=== PATIENT | male | born 1970 | race Caucasian/White ===

== ENCOUNTER → 2017-05-11 | Outpatient (CLI) | payer OTHER | END | disposition home or self-care (01) | LOC: C.RDSM 09:13 | PROVIDERS: ATTEND Family Medicine Sports Medicine | DX: M25.512 Pain in left shoulder (principal); M25.561 Pain in right knee ==

== ENCOUNTER → 2017-08-28 | Outpatient (CLI) | payer OTHER ==
--- NOTE | 2017-08-28 08:26 | DIAGNOSTIC IMAGING REPORT ---
R LOWER EXT JOINT WITHOUT CLINICAL HISTORY: 46 years-old Male with R KNEE EFFUSION. Acute right knee pain and swelling without known injury COMPARISON: Right knee radiographs 05/11/2017 TECHNIQUE: Multiplanar, multisequence MRI of the right knee was performed without intravenous contrast. FINDINGS: MENISCI: There is a horizontal undersurface tear of the posterior junction and posterior horn lateral meniscus nicely seen on images 6 and 7 of series 6. Additionally, there is a horizontal tear extending to the superior articular surface of the anterior junction lateral meniscal body nicely seen on image 5 series 6 and image 18 of series 8. No displaced fragment identified. 3 mm T2 hyperintense collection adjacent to the anterior horn lateral meniscus as seen on image 7 series 6 may reflect a small parameniscal cyst. Mild parameniscal edema. There is a radial tear of the posterior horn medial meniscus nicely seen on images 20 and 21 of series 8 with blunting of the free medial meniscal body and possible horizontal undersurface tear noted on image 17 of series 8. No definite displaced fragment or parameniscal cyst identified. Mild parameniscal edema. CRUCIATE LIGAMENTS: The anterior and posterior cruciate ligaments are normal in signal, morphology and course. COLLATERAL LIGAMENTS: The popliteus tendon, biceps femoris tendon, fibular collateral ligament and iliotibial band are intact. The superficial and deep components of the medial collateral ligament are intact. Mild edema is noted both superficial and deep to the intact MCL which is likely reactive. EXTENSOR MECHANISM: The quadriceps and patellar tendons are intact. The medial and lateral patellar retinacula are intact. KNEE JOINT: There is a moderate to large joint effusion with mild synovitis. There is mild tricompartmental joint space narrowing. Areas of low-grade chondromalacia are seen within the anterior, mid and posterior weightbearing portions of the lateral femoral condyle. Areas of intermediate grade chondromalacia are seen involving the mid weightbearing portion of the medial femoral condyle with low-grade chondral loss of the medial tibial plateau, most pronounced anteriorly. Area of high-grade chondromalacia involves the lateral trochlear groove nicely seen on image 9 series 6 and image 20 series 4. Mostly low-grade chondromalacia involves the medial and lateral patellar facets. No definite intra-articular loose body identified. BONE MARROW: The bone marrow signal is age appropriate. Mild bone marrow edema of the medial tibial plateau, image 18 series 6 and image 15 series 8. SOFT TISSUES: Mild subcutaneous edema circumferentially about the knee. Trace Arriaga's cyst. IMPRESSION: 1. Horizontal undersurface tear of the posterior junction and posterior horn lateral meniscus with horizontal tear of the anterior junction lateral meniscus. 3 mm parameniscal cyst is noted adjacent to the anterior horn lateral meniscus. 2. Radial tear of the posterior horn medial meniscus. 3. Mild tricompartmental joint space narrowing with multifocal chondromalacia as above, most pronounced within the medial and patellofemoral compartments. Mild bone marrow edema of the anteromedial aspect of the medial tibial plateau is likely reactive. 4. Moderate to large joint effusion with synovitis. 5. No evidence of acute ligamentous injury. The above report was generated using voice recognition software. It may contain grammatical, syntax or spelling errors. Electronically signed by: Prashant Zamorano M.D. 08/28/2017 8:24 AM Dictated Date/Time: 08/28/2017 8:02 AM
== END | disposition home or self-care (01) ==
LOC: C.MRIBC 06:42
PROVIDERS: ATTEND Family Medicine Sports Medicine
DX: M25.461 Effusion, right knee (principal)

== ENCOUNTER → 2017-09-04 | Outpatient (CLI) | payer OTHER | END | disposition home or self-care (01) | LOC: C.RDSM 08:42 | PROVIDERS: ATTEND Orthopaedic Surgery | DX: M79.606 Pain in leg, unspecified (principal) ==

== ENCOUNTER 2021-11-20 19:21 | Observation (INO) ==
[2021-11-20 19:55] LABS: Basophils # (auto) 0.05 K/uL (0-0.2); Basophils % (auto) 0.5 %; Eosinophils # (auto) 0.28 K/uL (0-0.50); Eosinophils % (auto) 2.9 %; Hematocrit (blood only) 45.9 % (40.1-51.0); Hemoglobin 16.1 g/dl (14.0-18.0); Immature Granulocytes # (auto) 0.02 K/uL (0.00-0.02); Immature Granulocytes % (auto) 0.2 %; Lymphocytes # (auto) 1.81 K/uL (1.2-3.4); Lymphocytes % (auto) 18.8 %; Mean Corpuscular Hemoglobin 32.3 pg (25.0-34.0); Mean Corpuscular Hgb Conc 35.1 g/dL (32.0-36.0); Mean Corpuscular Volume 92.2 fL (80.0-100.0); Mean Platelet Volume 10.6 fL (9.4-12.4); Monocytes # (auto) 0.59 K/uL (0.24-0.82); Monocytes % (auto) 6.1 %; Neutrophils # (auto) 6.86 K/uL (1.4-6.5); Neutrophils % (auto) 71.5 %; Platelet Count 191 K/uL (130-400); RDW Coefficient of Variation 12.2 % (11.5-14.5); Red Blood Count 4.98 M/uL (4.63-6.08); White Blood Count 9.61 K/ul (4.8-10.8)
[2021-11-20 20:20] LABS: Troponin I High Sensitivity 5.1 pg/ml (0-20)
[2021-11-20 20:24] LABS: Albumin Globulin Ratio 1.6 (0.9-2); Albumin Level 4.5 gm/dl (3.4-5.0); BUN Creatinine Ratio 15.6 (10-20); Bilirubin,Total 0.6 mg/dl (0.2-1.0); Calcium 9.3 mg/dl (8.5-10.1); Creatinine Clr Calc Pharmacy 104.2 ml/min; Est GFR (African American) 79.6 ml/min; Est GFR (Non-African American) 68.7 ml/min; Globulin 2.9 gm/dl (2.5-4.0); Potassium 4.2 mmol/L (3.5-5.1); Total Protein 7.4 gm/dl (6.0-8.3)
--- NOTE | 2021-11-20 20:51 | Emergency Department Note ---
Impression & Plan Chest pain, HTN (hypertension) ED Provider Note NAME: DAYNE ORTEGA AGE: 50 SEX: M : 1970 ARRIVES VIA: Walk-In INFORMANT: Patient ED PROVIDER(S): Derek Camejo DO CHIEF COMPLAINT: chest pain HPI: Patient is a 50-year-old male who presents the ER around as he felt sick to his stomach and felt like he was going to vomit today around 3pm. This abated shortly after. Shortly thereafter he started having chest pressure and some left arm pain which lasted for about an hour. He notes this gradually abated. Has come and gone since then. Does not remember any shortness of breath. Denies any dysuria, urgency, or frequency. No weakness or numbness in the arms or legs. Does have a history of hypertension previously which has now abated. He is also a smoker who stopped about 1 month ago but had smoked for about 30 years. He has a family history of previous MIs in his grandparents in the 50s to 60s. ROS: See above HPI for pertinent positives & negatives. A total of 10 systems reviewed and were otherwise negative. PAST MEDICAL HISTORY:See Below PAST SURGICAL HISTORY:See Below FAMILY HISTORY:See Below SOCIAL HISTORY:See Below HOME MEDICATIONS:See Below ALLERGIES:See Below VITALS:See Below PHYSICAL EXAMINATION: GENERAL: Sitting up in bed, alert, well appearing, well nourished, no distress, non-toxic EYE EXAM: normal conjunctiva. OROPHARYNX: no exudate, no erythema, lips, buccal mucosa, and tongue normal and mucous membranes are moist NECK: supple, no nuchal rigidity, no adenopathy, non-tender LUNGS: Clear to auscultation. Normal chest wall mechanics HEART: no murmurs, S1 normal and S2 normal ABDOMEN: abdomen soft, non-tender, normo-active bowel sounds, no masses, no rebound or guarding. UPPER EXTREMITIES: upper extremities are grossly normal. LOWER EXTREMITIES: No pitting edema. Calves are equal bilateral NEURO EXAM: Normal sensorium, cranial nerves II-XII grossly intact, normal speech, no gross weakness of arms, no gross weakness of legs. MEDICAL DECISION MAKING: Patient is a 50-year-old male that presents the ER for the above-stated complaint. IV was established blood work was obtained. Labs show no significant leukocytosis or anemia. BMP was unremarkable. LFTs bilirubin was unremarkable. Troponin was negative. Lipase was normal. COVID was negative. EKG was nondiagnostic. Chest x-ray was clean. Systolic pressures range from 200-1 70s. His chest pain recurred and he was given nitro and it abated. He was placed on Nitropaste as his pressures were still markedly elevated. He was updated and discussed with the hospitalist for further evaluation. He was admitted chest pain-free. Systolic pressures trended down from 200 to 160s on the Nitropaste. Triage Nursing notes reviewed. Limited review of prior medical records performed Vital Signs: reviewed and remarkable for HTN Differential diagnosis: Differential diagnoses includes but is not limited to acute coronary syndrome, myocardial infarction, pericarditis, pulmonary embolus, aortic dissection, pneumonia, pneumothorax, musculoskeletal, shingles, esophageal. ER treatment provided: See below Diagnostics interpreted by me: ECG: Sinus rhythm rate of 77 Normal axis No PVCs QTC 430 Cardiac Monitoring: An order was placed for continuous cardiac monitoring. The monitor shows a rate of 80 with sinus rhythm. Laboratory studies: As stated above and show below. Imaging studies: Portable AP upright 1 view the chest was unremarkable Consultation(s): Discussed with Dr. Karlos Castillo for further evaluation Procedures: none Critical Care: None Past Med/Surg History Medical History (Updated 11/21/21 @ 00:16 by Derek Camejo DO) Cyst of buttocks Cyst of face No pertinent family history Surgical History (Updated 10/06/18 @ 06:35 by Mariana Quezada) No pertinent past surgical history Family History (Updated 10/06/18 @ 06:35 by Mariana Quezada) Other No pertinent family history Social History (Updated 10/06/18 @ 06:35 by Mariana Quezada) Smoking Status: Former smoker Tobacco Type: Cigarettes Hx Alcohol Use: No Hx Substance Use: No Preferred Language: Hebrew Communication Ability: Effective Visual Impairment: No Limitations Hearing Ability: Normal Wire Taper Required: No Beliefs That Will Affect Care: None Current Living Situation: Spouse current occupational status: employed Feels Safe at Home: Yes Allergies Allergies Allergy/AdvReac Type Severity Reaction Status Date / Time No Known Allergies Allergy Unverified 11/20/21 21:29 Home Meds Home Medications Medication Instructions Recorded Confirmed No Known Home Medications 11/20/21 11/20/21 Results & Data (ED) Vital Signs Vital Signs - 24 hr 11/20/21 19:25 11/20/21 21:02 11/20/21 21:02 Temperature 36.7 C Temperature Source Temporal Artery Scan Pulse Rate 85 74 Pulse Rate [Right Finger] 74 Pulse Rhythm Regular Respiratory Rate 18 19 Respiratory Effort / Characteristics Non-Labored Spontaneous Respiratory Depth Normal Blood Pressure 213/141 H Blood Pressure [Right Arm] 193/128 H Blood Pressure Mean 165 Blood Pressure Mean [Right Arm] 149 Pulse Oximetry 96 98 95 Oxygen Delivery Method Room Air Sepsis Recent Fever Within 48 Hours No Sepsis New/Unexplained Change in Mental Status No Sepsis Action Taken by Nursing No Action Required 11/20/21 21:47 11/20/21 22:18 11/20/21 22:40 Temperature Temperature Source Pulse Rate Pulse Rate [Right Finger] 73 64 87 Pulse Rhythm Respiratory Rate 19 19 Respiratory Effort / Characteristics Respiratory Depth Normal Blood Pressure Blood Pressure [Right Arm] 176/127 H 202/142 H 174/124 H Blood Pressure Mean Blood Pressure Mean [Right Arm] 143 162 140 Pulse Oximetry 98 96 Oxygen Delivery Method Sepsis Recent Fever Within 48 Hours Sepsis New/Unexplained Change in Mental Status Sepsis Action Taken by Nursing Laboratory Data Result diagrams: 11/20/21 19:35 11/20/21 19:35 Lab Results 11/20/21 11/20/21 11/20/21 Range/Units 19:35 19:35 21:47 WBC 9.61 (4.8-10.8) K/ul RBC 4.98 (4.63-6.08) M/uL Hgb 16.1 (14.0-18.0) g/dl Hct 45.9 (40.1-51.0) % MCV 92.2 (80.0-100.0) fL MCH 32.3 (25.0-34.0) pg MCHC 35.1 (32.0-36.0) g/dL RDW Std Deviation 41.0 (36.4-46.3) fL RDW Coeff of Manish 12.2 (11.5-14.5) % Plt Count 191 (130-400) K/uL MPV 10.6 (9.4-12.4) fL Immature Gran % (Auto) 0.2 % Neut % (Auto) 71.5 % Lymph % (Auto) 18.8 % Orange % (Auto) 6.1 % Eos % (Auto) 2.9 % Baso % (Auto) 0.5 % Neut # (Auto) 6.86 H (1.4-6.5) K/uL Lymph # (Auto) 1.81 (1.2-3.4) K/uL Orange # (Auto) 0.59 (0.24-0.82) K/uL Eos # (Auto) 0.28 (0-0.50) K/uL Baso # (Auto) 0.05 (0-0.2) K/uL Immature Gran # (Auto) 0.02 (0.00-0.02) K/uL Sodium 138 (136-145) mmol/L Potassium 4.2 (3.5-5.1) mmol/L Chloride 107 (98-107) mmol/L Carbon Dioxide 25 (21-32) mmol/L Anion Gap 6 (3-11) BUN 19 (6-23) mg/dl Creatinine 1.22 (0.6-1.4) mg/dl Est Cr Clr Drug Dosing 104.2 ml/min Est GFR ( Amer) 79.6 ml/min Est GFR (Non-Af Amer) 68.7 ml/min BUN/Creatinine Ratio 15.6 (10-20) Glucose 110 H (70-99(Fasting)) mg/dl Calcium 9.3 (8.5-10.1) mg/dl Magnesium (1.7-2.4) mg/dl Total Bilirubin 0.6 (0.2-1.0) mg/dl AST 20 (13-39) U/L ALT 33 (7-52) U/L Alkaline Phosphatase 105 H (34-104) U/L Troponin I High Sens 5.1 (0-20) pg/ml Total Protein 7.4 (6.0-8.3) gm/dl Albumin 4.5 (3.4-5.0) gm/dl Globulin 2.9 (2.5-4.0) gm/dl Albumin/Globulin Ratio 1.6 (0.9-2) Lipase 16 (11-82) U/L SARS-CoV-2, RNA, NAAT NEGATIVE (NEGATIVE) 11/20/21 Range/Units 22:29 WBC (4.8-10.8) K/ul RBC (4.63-6.08) M/uL Hgb (14.0-18.0) g/dl Hct (40.1-51.0) % MCV (80.0-100.0) fL MCH (25.0-34.0) pg MCHC (32.0-36.0) g/dL RDW Std Deviation (36.4-46.3) fL RDW Coeff of Manish (11.5-14.5) % Plt Count (130-400) K/uL MPV (9.4-12.4) fL Immature Gran % (Auto) % Neut % (Auto) % Lymph % (Auto) % Orange % (Auto) % Eos % (Auto) % Baso % (Auto) % Neut # (Auto) (1.4-6.5) K/uL Lymph # (Auto) (1.2-3.4) K/uL Orange # (Auto) (0.24-0.82) K/uL Eos # (Auto) (0-0.50) K/uL Baso # (Auto) (0-0.2) K/uL Immature Gran # (Auto) (0.00-0.02) K/uL Sodium (136-145) mmol/L Potassium (3.5-5.1) mmol/L Chloride (98-107) mmol/L Carbon Dioxide (21-32) mmol/L Anion Gap (3-11) BUN (6-23) mg/dl Creatinine (0.6-1.4) mg/dl Est Cr Clr Drug Dosing ml/min Est GFR ( Amer) ml/min Est GFR (Non-Af Amer) ml/min BUN/Creatinine Ratio (10-20) Glucose (70-99(Fasting)) mg/dl Calcium (8.5-10.1) mg/dl Magnesium 2.0 (1.7-2.4) mg/dl Total Bilirubin (0.2-1.0) mg/dl AST (13-39) U/L ALT (7-52) U/L Alkaline Phosphatase (34-104) U/L Troponin I High Sens 5.3 (0-20) pg/ml Total Protein (6.0-8.3) gm/dl Albumin (3.4-5.0) gm/dl Globulin (2.5-4.0) gm/dl Albumin/Globulin Ratio (0.9-2) Lipase (11-82) U/L SARS-CoV-2, RNA, NAAT (NEGATIVE) Administered Medications Enoxaparin Sodium (Enoxaparin Inj 40 Mg/0.4 Ml Syr) 40 mg SQ PM BARBARA Stop: 12/20/21 23:32 Last Admin: 11/21/21 00:10 Dose: 40 mg Documented By: ASW Discontinued Medications Aspirin (Aspirin Chew 324 Mg) 324 mg PO NOW STA Stop: 11/20/21 20:54 Last Admin: 11/20/21 21:01 Dose: 324 mg Documented By: ASW Hydralazine HCl (Hydralazine Hcl 20 Mg/Ml Vial) 10 mg IV NOW STA Stop: 11/20/21 22:21 Last Admin: 11/20/21 22:23 Dose: 10 mg Documented By: ASW Nitroglycerin (Nitroglycerin Sl 0.4 Mg/Tab Tab) 0.4 mg SL PRN PRN PRN Reason: Affected Skin Folds Stop: 12/20/21 20:52 Last Admin: 11/20/21 21:01 Dose: 0.4 mg Documented By: ASW Nitroglycerin (Nitroglycerin 2% Ointment 30gm Tube) 2 inch EXT Q6H BARBARA Stop: 12/20/21 21:29 Last Admin: 11/20/21 21:47 Dose: 2 inch Documented By: ASW Imaging Data Radiologist's Impression: Chest X-Ray 11/20/21 19:27 SINGLE VIEW CHEST CLINICAL HISTORY: Atypical chest pain FINDINGS: 2 AP, portable, upright chest radiographs are obtained. No prior studies are available for comparison at the time of dictation. The examination is degraded by portable technique and apical lordotic positioning. The heart is top normal for projection noting atherosclerotic calcification of the thoracic aorta. The pulmonary vasculature is noncongested. There is bibasilar scarring/atelectasis. No airspace consolidation or large pleural effusion is identified. No pneumothorax is seen. The bony thorax is grossly intact. IMPRESSION: No acute cardiopulmonary abnormality. ACT 112: Negative or not required by law. Electronically signed by: Abraham Ceron M.D. 11/20/2021 8:59 PM Discharge Plan Visit Data Chief Complaint: Chest Pain Stated Complaint: CHEST PAIN, WEAK ED Provider: Derek Camejo Discharge Problem: Chest pain, HTN (hypertension) Patient Disposition: Admitted As Inpatient Discharge Instructions Interventions: ED Discharge Assessment Last Done: 11/20/21 23:34
[2021-11-20] MEDS ORDERED: NITROGLYCERIN SL 0.4 MG/TAB TAB SL PRN ×2 (20:53→23:33)
[2021-11-20] MEDS ORDERED: ASPIRIN CHEW 324 MG PO STA (20:53)
--- NOTE | 2021-11-20 21:00 | XRay Report ---
SINGLE VIEW CHEST CLINICAL HISTORY: Atypical chest pain FINDINGS: 2 AP, portable, upright chest radiographs are obtained. No prior studies are available for comparison at the time of dictation. The examination is degraded by portable technique and apical gloria dotic positioning. The heart is top normal for projection noting atherosclerotic calcification of th e thoracic aorta. The pulmonary vasculature is noncongested. There is bibasilar scarring/atelectasis. No airspace consolidation or large pleural effusion is identified. No pneumothorax is seen. The bony thorax is grossly intact. IMPRESSION: No acute cardiopulmonary abnormality. ACT 112: Negative or not required by law. Electronically signed by: Abraham Ceron M.D. 11/20/2021 8:59 PM
[2021-11-20] MEDS ORDERED: NITROGLYCERIN 2% OINTMENT 30GM TUBE EXT SCH (21:30)
--- NOTE | 2021-11-20 21:58 | History & Physical Report ---
Date of Service November 20, 2021 Assessment & Plan (1) Hypertensive emergency: Plan: BP up to 213/141, briefly improved after Nitropaste but then back up to 202/142. Suspect patient has had uncontrolled hypertension that may have caused chest pain/angina. - BP down to 168/113 after Hydralazine 10mg IV - continue with Hydralazine 10mg IV Q6H as needed for SBP >180 - will start Losartan 25mg PO QAM + Amlodipine 5mg PO QAM in the morning - f/u with PCP for further management (2) Chest pain: Plan: Symptoms suggestive of typical angina and resolved after Nitropaste. However EKG without ST/T abnormalities, and hsTroponin 5.1 --> 5.3 after ~3 hours. - trend tsTroponin again in AM - PRN EKG/Nitro SL for chest pain - consult Cardiology - appreciate recs - NPO pending Cardiology evaluation - will likely require stress testing (inpatient vs outpatient - defer to Cardiology) - start ARB as stated above - caution with BB due to 1st degree block - defer Aspirin/Atorvastatin, pending further evaluation - ordered lipid profile and A1c in AM (3) HTN (hypertension): Plan: Chronic, likely uncontrolled as stated above. Plan as above. (4) First degree atrioventricular block: Plan: Per EKG done today. - may need to avoid beta-blockade in this patient Plan FEN/GI: NPO DVT Prophylaxis: Lovenox Code Status: full code Disposition: med/tele History of Present Illness Chief Complaint: chest pain Primary Care Provider: ANSHUL Morrison Stefan Rowland is a 50yo male with PMHx significant for HTN (not on medications) who presented to [facility] ED on 11/20 for chest pain. 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 He sat down and rested for ~10 minutes which led to resolution of symptoms. Then he started driving back from [employer] (where he was working), and ~[address] he developed moderate-intensity radiating chest pressure to left arm which lasted for ~1 hour and then had remained as intermittent chest pressure since then, which brought him to the ED. Patient denies previous chest pain/angina, denies previous CO or heart disease. Does have h/o HTN - took Lisinopril 10mg PO daily, lost weight and was able to wean off of his medication several years ago. Of note he has not checked his BP recently. Patient has a family history of CO (grandmother, in her late 50s) and has a 20 pack year smoking history - quit ~1 month ago. In the ED the patient was hypertensive to 213/141. hsTroponin was 5.1, and EKG showed NSR with 1st degree AV block although was without ST/T abnormalities. CBC/CMP/lipase all unremarkable. CXR unremarkable. Patient received Aspirin 324mg, SL Nitro x1, and Nitropaste x1, with complete resolution of chest pain. Allergies Allergy/AdvReac Type Severity Reaction Status Date / Time No Known Allergies Allergy Unverified 11/20/21 21:29 Home Medications Medication Instructions Recorded Confirmed Type amlodipine 5 mg tablet (Norvasc) 5 mg PO QAM #30 tabs 11/21/21 Rx carvedilol 3.125 mg tablet 3.125 mg PO BID #60 tabs 11/21/21 Rx losartan 25 mg tablet 25 mg PO QAM #30 tabs 11/21/21 Rx Past Med/Surg History Medical History (Updated 11/21/21 @ 15:27 by Alfonso Nixon MD) Cyst of buttocks Cyst of face Dilated aortic root HTN (hypertension) No pertinent family history Surgical History (Updated 10/06/18 @ 06:35 by Mariana Quezada) No pertinent past surgical history Family History (Updated 10/06/18 @ 06:35 by Mariana Quezada) Other No pertinent family history Social History (Updated 10/06/18 @ 06:35 by Mariana Quezada) Smoking Status: Former smoker Tobacco Type: Cigarettes Hx Alcohol Use: No Hx Substance Use: No Preferred Language: Kuwaiti Communication Ability: Effective Visual Impairment: No Limitations Hearing Ability: Normal Product Manufacturing Professional Required: No Beliefs That Will Affect Care: None Current Living Situation: Spouse current occupational status: employed Feels Safe at Home: Yes Assistive Devices: None Review of Systems Review of Systems: All systems reviewed & are unremarkable except as noted in HPI & below Physical Exam Physical Exam: General: A&Ox3. NAD. Cooperative. HEENT: Atraumatic, normocephalic. Pulm: CTAB A&P. -wheezes, -rales, -rhonchi. Symmetrical chest rise. No increase work of breathing. No respiratory distress. Cardiac: RRR, -mrg. Radial pulses intact and symmetrical Chest: no tenderness to palpation of chest. Abdominal: soft, non-tender, non-distended, BS x 4 Skin: warm, dry, no rash Results & Data Results & Data ([facility]) Vital Signs (Past 12 Hours) Vital Signs Temp Pulse Pulse Resp BP BP Pulse Ox 11/20/21 21:47 73 19 176/127 H 98 11/20/21 21:02 74 95 11/20/21 21:02 74 19 193/128 H 98 11/20/21 19:25 36.7 C 85 18 213/141 H 96 O2 Del Method 11/20/21 21:47 11/20/21 21:02 11/20/21 21:02 11/20/21 19:25 Room Air Supervising Physician Co-Signing Physician Notes Attending addendum: I have physically seen this patient, have supervised the medical residents activities, and agree with the H&P unless as otherwise noted. Assessment and Plan: Hypertensive emergency- Continue Nitropaste 2 inches to anterior chest wall begun in ED Hydralazine 10 mg IV every 6 hours Beginning losartan and amlodipine as noted The patient will be admitted to telemetry for serial cardiac enzymes, serial EKG's, cardiac rhythm monitoring and a 2-D echocardiogram with Dopplers. Cardiology consulted regarding improvement of anginal symptoms with Nitropaste Voiding negative inotropes due to first-degree heart block Remaining orders and notations as noted Resident Activity Tracking Resident Involvement: Resident Care Provided Care Provided: Adult [facility] Medicine
[2021-11-20] MEDS ORDERED: hydrALAZINE HCL 20 MG/ML VIAL IV STA (22:20)
[2021-11-20 23:08] LABS: Troponin I High Sensitivity 5.3 pg/ml (0-20)
[2021-11-20] MEDS ORDERED: ACETAMINOPHEN 325 MG TAB PO PRN (23:33)
[2021-11-20] MEDS ORDERED: hydrALAZINE HCL 20 MG/ML VIAL IV PRN (23:33)
[2021-11-20] MEDS ORDERED: ENOXAPARIN INJ 40 MG/0.4 ML SYR SQ SCH (23:33)
[2021-11-21 06:14] LABS: BUN Creatinine Ratio 15.9 (10-20); Calcium 8.6 mg/dl (8.5-10.1); Chol HDL Ratio 5.2 (0-5); Creatinine Clr Calc Pharmacy 100.9 ml/min; Est GFR (African American) 76.6 ml/min; Est GFR (Non-African American) 66.1 ml/min; Magnesium 2.1 mg/dl (1.7-2.4); Potassium 3.8 mmol/L (3.5-5.1)
[2021-11-21 06:56] LABS: Estimated Average Glucose 114 mg/dl; Hemoglobin A1C 5.6 % (4.5-5.6)
[2021-11-21 07:02] LABS: Basophils # (auto) 0.03 K/uL (0-0.2); Basophils % (auto) 0.5 %; Eosinophils # (auto) 0.41 K/uL (0-0.50); Eosinophils % (auto) 6.3 %; Hematocrit (blood only) 42.8 % (40.1-51.0); Immature Granulocytes # (auto) 0.02 K/uL (0.00-0.02); Immature Granulocytes % (auto) 0.3 %; Lymphocytes # (auto) 1.86 K/uL (1.2-3.4); Lymphocytes % (auto) 28.7 %; Mean Corpuscular Hemoglobin 32.8 pg (25.0-34.0); Mean Corpuscular Volume 93.4 fL (80.0-100.0); Mean Platelet Volume 10.9 fL (9.4-12.4); Monocytes # (auto) 0.65 K/uL (0.24-0.82); Neutrophils # (auto) 3.51 K/uL (1.4-6.5); Neutrophils % (auto) 54.2 %; Platelet Count 170 K/uL (130-400); RDW Coefficient of Variation 12.4 % (11.5-14.5); RDW Standard Deviation 42.3 fL (36.4-46.3); Red Blood Count 4.58 M/uL (4.63-6.08); White Blood Count 6.48 K/ul (4.8-10.8)
--- NOTE | 2021-11-21 07:33 | Hospitalist Progress Note ---
Date of Service November 21, 2021 Assessment & Plan (1) Hypertensive emergency: (2) Chest pain: (3) HTN (hypertension): (4) First degree atrioventricular block: Plan Mr. Rowland is a 50 y/o male with PMHx significant for HTN (not on medications) who presented to [facility] ED on 11/20 for chest pain. 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 He sat down and rested for ~10 minutes which led to resolution of symptoms. Then he started driving back from [employer] (where he was working), and ~[address] he developed moderate-intensity radiating chest pressure to left arm which lasted for ~1 hour and then had remained as intermittent chest pressure since then, which brought him to the ED. Patient denies previous chest pain/angina, denies previous CA or heart disease. Does have h/o HTN - took Lisinopril 10mg PO daily, lost weight and was able to wean off of his medication several years ago. Of note he has not checked his BP recently. Patient has a family history of CA (grandmother, in her late 50s) and has a 20 pack year smoking history - quit ~1 month ago. In the ED the patient was hypertensive to 213/141. hsTroponin was 5.1, and EKG showed NSR with 1st degree AV block although was without ST/T abnormalities. CBC/CMP/lipase all unremarkable. CXR unremarkable. Patient received Aspirin 324mg, SL Nitro x1, and Nitropaste x1, with complete resolution of chest pain #Hypertensive Emergency BP up to 213/141, briefly improved after Nitropaste but then back up to 202/142. Suspect patient has had uncontrolled hypertension that may have caused chest pain/angina. BP down to 168/113 after Hydralazine 10mg IV - [] continue with Hydralazine 10mg IV Q6H as needed for SBP >180 [] Losartan 25mg PO QAM + Amlodipine 5mg PO QAM in the morning [] f/u with PCP for further management ECHO f/u tmrw cards #CP - resolved Symptoms suggestive of typical angina and resolved after Nitropaste. However EKG without ST/T abnormalities, and hsTroponin 5.1 --> 5.3 after ~3 hours. [] trend tsTroponin again in AM [] PRN EKG/Nitro SL for chest pain [] consult Cardiology - appreciate recs [] NPO pending Cardiology evaluation - will likely require stress testing (inpatient vs outpatient - defer to Cardiology) [] start ARB as stated above [] caution with BB due to 1st degree block [] defer Aspirin/Atorvastatin, pending further evaluation [] ordered lipid profile and A1c in AM #HTN Chronic, likely uncontrolled as stated above. Plan as above. #First degree AV block Per EKG done today. [] may need to avoid beta-blockade in this patient FEN/GI: NPO DVT Prophylaxis: Lovenox Code Status: full code Disposition: med/tele Admission and Anticipated Discharge Date Admission Date: November 20, 2021 Subjective The patient notes that he is feeling well today. He denies any CP or SOB. The patient is interested in going home today. Of note, he has a month long trip planned and is leaving 11/28. Review of Systems Review of Systems: See subjective/HPI Physical Exam Physical Exam: General: A&Ox3. NAD. Cooperative. HEENT: Atraumatic, normocephalic. Pulm: CTAB A&P. -wheezes, -rales, -rhonchi. Symmetrical chest rise. No increase work of breathing. No respiratory distress. Cardiac: RRR, -mrg. Radial pulses intact and symmetrical Chest: no tenderness to palpation of chest. Abdominal: soft, non-tender, non-distended Skin: warm, dry, no rash Results & Data Results & Data ([facility]) Vital Signs (Past 12 Hours) Vital Signs Temp Pulse Pulse Resp BP Pulse Ox O2 Del Method 11/21/21 06:00 37.0 C 70 18 146/102 H 96 Room Air 11/21/21 04:00 110 H 18 135/85 95 Room Air 11/21/21 00:16 69 19 97 Room Air 11/21/21 00:11 36.9 C 68 19 138/89 98 Room Air 11/20/21 23:09 75 16 168/113 H 98 Room Air 11/20/21 22:40 87 174/124 H 11/20/21 22:18 64 19 202/142 H 96 11/20/21 21:47 73 19 176/127 H 98 11/20/21 21:02 74 95 11/20/21 21:02 74 19 193/128 H 98 Laboratory Results 11/21/21 11/21/21 11/21/21 Range/Units 05:25 05:25 05:25 WBC 6.48 (4.8-10.8) K/ul RBC 4.58 L (4.63-6.08) M/uL Hgb 15.0 (14.0-18.0) g/dl Hct 42.8 (40.1-51.0) % MCV 93.4 (80.0-100.0) fL MCH 32.8 (25.0-34.0) pg MCHC 35.0 (32.0-36.0) g/dL RDW Std Deviation 42.3 (36.4-46.3) fL RDW Coeff of Manish 12.4 (11.5-14.5) % Plt Count 170 (130-400) K/uL MPV 10.9 (9.4-12.4) fL Immature Gran % (Auto) 0.3 % Neut % (Auto) 54.2 % Lymph % (Auto) 28.7 % [place] % (Auto) 10.0 % Eos % (Auto) 6.3 % Baso % (Auto) 0.5 % Neut # (Auto) 3.51 (1.4-6.5) K/uL Lymph # (Auto) 1.86 (1.2-3.4) K/uL [place] # (Auto) 0.65 (0.24-0.82) K/uL Eos # (Auto) 0.41 (0-0.50) K/uL Baso # (Auto) 0.03 (0-0.2) K/uL Immature Gran # (Auto) 0.02 (0.00-0.02) K/uL Sodium 139 (136-145) mmol/L Potassium 3.8 (3.5-5.1) mmol/L Chloride 107 (98-107) mmol/L Carbon Dioxide 27 (21-32) mmol/L Anion Gap 5 (3-11) BUN 20 (6-23) mg/dl Creatinine 1.26 (0.6-1.4) mg/dl Est Cr Clr Drug Dosing 100.9 ml/min Est GFR ( Amer) 76.6 ml/min Est GFR (Non-Af Amer) 66.1 ml/min BUN/Creatinine Ratio 15.9 (10-20) Glucose 101 H (70-99(Fasting)) mg/dl Estimat Average Glucose 114 mg/dl Hemoglobin A1c 5.6 (4.5-5.6) % Calcium 8.6 (8.5-10.1) mg/dl Magnesium 2.1 (1.7-2.4) mg/dl Total Bilirubin (0.2-1.0) mg/dl AST (13-39) U/L ALT (7-52) U/L Alkaline Phosphatase (34-104) U/L Troponin I High Sens 5.0 (0-20) pg/ml Total Protein (6.0-8.3) gm/dl Albumin (3.4-5.0) gm/dl Globulin (2.5-4.0) gm/dl Albumin/Globulin Ratio (0.9-2) Triglycerides 90 (0-150) mg/dl Cholesterol 156 (0-200) mg/dl LDL Cholesterol, Calc 108 mg/dl VLDL Cholesterol, Calc 18 (0-30) mg/dl HDL Cholesterol 30 mg/dl Cholesterol/HDL Ratio 5.2 H (0-5) Lipase (11-82) U/L SARS-CoV-2, RNA, NAAT (NEGATIVE) 11/20/21 11/20/21 11/20/21 Range/Units 22:29 21:47 19:35 WBC (4.8-10.8) K/ul RBC (4.63-6.08) M/uL Hgb (14.0-18.0) g/dl Hct (40.1-51.0) % MCV (80.0-100.0) fL MCH (25.0-34.0) pg MCHC (32.0-36.0) g/dL RDW Std Deviation (36.4-46.3) fL RDW Coeff of Manish (11.5-14.5) % Plt Count (130-400) K/uL MPV (9.4-12.4) fL Immature Gran % (Auto) % Neut % (Auto) % Lymph % (Auto) % [place] % (Auto) % Eos % (Auto) % Baso % (Auto) % Neut # (Auto) (1.4-6.5) K/uL Lymph # (Auto) (1.2-3.4) K/uL [place] # (Auto) (0.24-0.82) K/uL Eos # (Auto) (0-0.50) K/uL Baso # (Auto) (0-0.2) K/uL Immature Gran # (Auto) (0.00-0.02) K/uL Sodium 138 (136-145) mmol/L Potassium 4.2 (3.5-5.1) mmol/L Chloride 107 (98-107) mmol/L Carbon Dioxide 25 (21-32) mmol/L Anion Gap 6 (3-11) BUN 19 (6-23) mg/dl Creatinine 1.22 (0.6-1.4) mg/dl Est Cr Clr Drug Dosing 104.2 ml/min Est GFR ( Amer) 79.6 ml/min Est GFR (Non-Af Amer) 68.7 ml/min BUN/Creatinine Ratio 15.6 (10-20) Glucose 110 H (70-99(Fasting)) mg/dl Estimat Average Glucose mg/dl Hemoglobin A1c (4.5-5.6) % Calcium 9.3 (8.5-10.1) mg/dl Magnesium 2.0 (1.7-2.4) mg/dl Total Bilirubin 0.6 (0.2-1.0) mg/dl AST 20 (13-39) U/L ALT 33 (7-52) U/L Alkaline Phosphatase 105 H (34-104) U/L Troponin I High Sens 5.3 5.1 (0-20) pg/ml Total Protein 7.4 (6.0-8.3) gm/dl Albumin 4.5 (3.4-5.0) gm/dl Globulin 2.9 (2.5-4.0) gm/dl Albumin/Globulin Ratio 1.6 (0.9-2) Triglycerides (0-150) mg/dl Cholesterol (0-200) mg/dl LDL Cholesterol, Calc mg/dl VLDL Cholesterol, Calc (0-30) mg/dl HDL Cholesterol mg/dl Cholesterol/HDL Ratio (0-5) Lipase 16 (11-82) U/L SARS-CoV-2, RNA, NAAT NEGATIVE (NEGATIVE) 11/20/21 Range/Units 19:35 WBC 9.61 (4.8-10.8) K/ul RBC 4.98 (4.63-6.08) M/uL Hgb 16.1 (14.0-18.0) g/dl Hct 45.9 (40.1-51.0) % MCV 92.2 (80.0-100.0) fL MCH 32.3 (25.0-34.0) pg MCHC 35.1 (32.0-36.0) g/dL RDW Std Deviation 41.0 (36.4-46.3) fL RDW Coeff of Manish 12.2 (11.5-14.5) % Plt Count 191 (130-400) K/uL MPV 10.6 (9.4-12.4) fL Immature Gran % (Auto) 0.2 % Neut % (Auto) 71.5 % Lymph % (Auto) 18.8 % [place] % (Auto) 6.1 % Eos % (Auto) 2.9 % Baso % (Auto) 0.5 % Neut # (Auto) 6.86 H (1.4-6.5) K/uL Lymph # (Auto) 1.81 (1.2-3.4) K/uL [place] # (Auto) 0.59 (0.24-0.82) K/uL Eos # (Auto) 0.28 (0-0.50) K/uL Baso # (Auto) 0.05 (0-0.2) K/uL Immature Gran # (Auto) 0.02 (0.00-0.02) K/uL Sodium (136-145) mmol/L Potassium (3.5-5.1) mmol/L Chloride (98-107) mmol/L Carbon Dioxide (21-32) mmol/L Anion Gap (3-11) BUN (6-23) mg/dl Creatinine (0.6-1.4) mg/dl Est Cr Clr Drug Dosing ml/min Est GFR ( Amer) ml/min Est GFR (Non-Af Amer) ml/min BUN/Creatinine Ratio (10-20) Glucose (70-99(Fasting)) mg/dl Estimat Average Glucose mg/dl Hemoglobin A1c (4.5-5.6) % Calcium (8.5-10.1) mg/dl Magnesium (1.7-2.4) mg/dl Total Bilirubin (0.2-1.0) mg/dl AST (13-39) U/L ALT (7-52) U/L Alkaline Phosphatase (34-104) U/L Troponin I High Sens (0-20) pg/ml Total Protein (6.0-8.3) gm/dl Albumin (3.4-5.0) gm/dl Globulin (2.5-4.0) gm/dl Albumin/Globulin Ratio (0.9-2) Triglycerides (0-150) mg/dl Cholesterol (0-200) mg/dl LDL Cholesterol, Calc mg/dl VLDL Cholesterol, Calc (0-30) mg/dl HDL Cholesterol mg/dl Cholesterol/HDL Ratio (0-5) Lipase (11-82) U/L SARS-CoV-2, RNA, NAAT (NEGATIVE) Diagnostic Findings Chest X-Ray 11/20/21 19:27 SINGLE VIEW CHEST CLINICAL HISTORY: Atypical chest pain FINDINGS: 2 AP, portable, upright chest radiographs are obtained. No prior studies are available for comparison at the time of dictation. The examination is degraded by portable technique and apical lordotic positioning. The heart is top normal for projection noting atherosclerotic calcification of the thoracic aorta. The pulmonary vasculature is noncongested. There is bibasilar scarring/ atelectasis. No airspace consolidation or large pleural effusion is identified. No pneumothorax is seen. The bony thorax is grossly intact. IMPRESSION: No acute cardiopulmonary abnormality. ACT 112: Negative or not required by law. Electronically signed by: Abraham Ceron M.D. 11/20/2021 8:59 PM
[2021-11-21] MEDS ORDERED: amLODIPine BESYLATE 5 MG TAB PO SCH (09:00)
[2021-11-21] MEDS ORDERED: LOSARTAN POTASSIUM 25 MG TAB PO SCH (09:00)
--- NOTE | 2021-11-21 11:27 | Cardiac Catheterization ---
ACC Data: Document Processing Specialist Cardiac Status Clinical evaluation leading to the procedure Diagnostic Physicians Name: Alfonso Nixon MD Cardiac Cath Procedure Full Procedure Date November 21, 2021 Pre-Procedure Diagnosis Pre-Procedure Diagnosis: Angina AUC Score AUC Score: 7 Post-Procedure Diagnosis Post-Procedure Diagnosis: Severe CAD Skydiving Instructor Alfonso Nixon MD I attest to the content of the Intraoperative Record and any orders documented therein. Any exceptions are noted below. PG Care Time/CCT Total # of Minutes Spent Total Time Spent with Patient: Total time spent is greater than 50% in coordination of care (as documented) at patient's floor/unit and/or counseling patient:
--- NOTE | 2021-11-21 13:39 | XCELERA ---
[id number]
--- NOTE | 2021-11-21 13:41 | Cardiology Consultation ---
Date of Consultation November 21, 2021 Assessment & Plan (1) Hypertensive emergency: (2) Chest pain: (3) Dilated aortic root: Plan ASSESSMENT/PLAN: 1. Hypertensive emergency: Blood pressure improved but remains elevated. Amlodipine and losartan initiated by hospitalist service. Titrate for effect. Recommended low-sodium and Mediterranean diet. 2. Atypical chest pain: Chest pain atypical not consistent with angina. Prolonged episodes at rest with normal high sensitivity troponin and unremarkable ECG. Ischemic evaluation not necessary at this time. If he should develop symptoms concerning for angina as an outpatient, could consider outpatient stress testing in the future. 3. Dilated aortic root: Noted on echocardiogram after today's visit. Optimize blood pressure over time. If no contraindication, would consider addition of beta-andrés due to the dilated aorta. Avoid strenuous lifting for which the Valsalva maneuver is required. This finding and recommendations were discussed with Dr. Prince of the primary hospitalist service. 4. Disposition: Can be discharged home from a Cardiology perspective, when blood pressure is acceptable. Patient care discussed via telephone with Dr. Prince of the primary hospitalist service. Happy to help follow as an outpatient, especially for surveillance of his dilated aortic root. Thank you for allowing me to participate in the care of your patient. Please call for any other questions or concerns. Sincerely, Luis Nixon M.D. History of Present Illness Reason for Consultation: Chest pain, hypertensive emergency Requesting Physician: Kadeem Lopes Attending Physician: Derek Prince, History of Present Illness Mr. Rowland is a pleasant 50-year-old gentleman with history significant for hypertension who was admitted on 11/20/2021 for chest discomfort and severe hypertension. He has been diagnosed with hypertension for years. He had been on lisinopril but it was discontinued approximately 4 years ago after losing weight and noting improvement in his blood pressure. He admits that he does not see a physician on a regular basis, stating approximately 3 years for his last visit. He has a blood pressure cuff at home but does not check it regularly but admits that when he was checking in the past, he was noting systolic in the 140s and diastolic in the 90s on average. 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 He then had a few hour drive home, but likely was able to ride as a passenger. He fell asleep and when he awakened, he had chest tightness/squeezing sensation on the left side of his chest. There was no radiation initially and no associated shortness of breath. At 1 point he read online about the symptoms of a heart attack and then developed left shoulder and jaw discomfort. The chest discomfort lasted approximately 1 hour before spontaneously resolving. The chest discomfort returned, persisting another 45 minutes before spontaneously resolving, only to return again. In the emergency department, ECG did not suggest any dynamic ST/T-wave abnormalities. He received nitroglycerin and nitro glycerin paste. Symptoms eventually resolved. On presentation, he was found to be severely hypertensive with initial blood pressure of 213/141 mmHg. Hospitalist service initiated amlodipine 5 mg daily and losartan 25 mg daily this morning. He also received 1 dose of intravenous hydralazine 10 mg on 11/20/2021 at 10:23 p.m.. He has not had any further chest discomfort. Although he does not participate dedicated exercise, he is quite active. He has not had dyspnea with exertion or exertional chest discomfort leading up to yesterday's events. 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 This has occurred leading up to yesterday's event although yesterday's event was much more significant/severe in regards to the nausea and lightheadedness. When he was seen in the emergency department this morning, he was chest pain- free. He denies melena, hematochezia, hematuria, syncope, near-syncope, palpitations, or edema. Review of systems: As above. Review of systems otherwise negative/unremarkable. Family history: Grandmother from [place] and diabetes in her 60s. Social history: Quit smoking 1 month ago after smoking up to approximately 35 pack years. No alcohol or drug abuse. . Lives in [place]. Unaccompanied in the emergency department room. Allergies Allergy/AdvReac Type Severity Reaction Status Date / Time No Known Allergies Allergy Unverified 11/20/21 21:29 Home Medications Medication Instructions Recorded Confirmed Type No Known Home Medications 11/20/21 11/20/21 History Patient History Medical History (Updated 11/21/21 @ 15:27 by Alfonso Nixon MD) Cyst of buttocks Cyst of face Dilated aortic root HTN (hypertension) No pertinent family history Surgical History (Updated 10/06/18 @ 06:35 by Mariana Quezada) No pertinent past surgical history Family History (Updated 10/06/18 @ 06:35 by Mariana Quezada) Other No pertinent family history Social History (Updated 10/06/18 @ 06:35 by Mariana Quezada) Smoking Status: Former smoker Tobacco Type: Cigarettes Hx Alcohol Use: No Hx Substance Use: No Preferred Language: Cypriot Communication Ability: Effective Visual Impairment: No Limitations Hearing Ability: Normal Railway Yard Assistant Required: No Beliefs That Will Affect Care: None Current Living Situation: Spouse current occupational status: employed Feels Safe at Home: Yes Assistive Devices: None Physical Exam Physical Exam: Gen.: No acute distress. Alert and oriented. HEENT: Anicteric sclera. Neck: No JVD. No bruits. Normal carotid upstrokes bilaterally. Cardiac: PMI was nondisplaced. No ventricular heave. Regular. Normal S1-S2. No murmurs, rubs, or gallops. Pulmonary: Clear to auscultation bilaterally without wheezes, rales, or rhonchi. Abdomen: Soft, nontender, nondistended, with normoactive bowel sounds. No bruits noted. Extremities: 2+ radial pulses bilaterally. 2+ posterior tibialis pulses bilaterally. No edema or cyanosis. Psychiatric: Affect appears appropriate. Chest: Nontender to palpation. Results & Data ([facility]) Vital Signs (Past 12 Hours) Vital Signs Temp Pulse Resp BP Pulse Ox O2 Del Method 11/21/21 12:30 Room Air 11/21/21 12:17 36.7 C 58 L 16 171/101 H 98 Room Air 11/21/21 09:32 Room Air 11/21/21 09:32 36.6 C 58 L 18 177/121 H 99 Room Air 11/21/21 06:00 37.0 C 70 18 146/102 H 96 Room Air 11/21/21 04:00 110 H 18 135/85 95 Room Air Laboratory Results Laboratory Results - last 24 hr 11/20/21 11/20/21 11/20/21 19:35 19:35 21:47 WBC 9.61 RBC 4.98 Hgb 16.1 Hct 45.9 MCV 92.2 MCH 32.3 MCHC 35.1 RDW Std Deviation 41.0 RDW Coeff of Manish 12.2 Plt Count 191 MPV 10.6 Immature Gran % (Auto) 0.2 Neut % (Auto) 71.5 Lymph % (Auto) 18.8 [place] % (Auto) 6.1 Eos % (Auto) 2.9 Baso % (Auto) 0.5 Neut # (Auto) 6.86 H Lymph # (Auto) 1.81 [place] # (Auto) 0.59 Eos # (Auto) 0.28 Baso # (Auto) 0.05 Immature Gran # (Auto) 0.02 Sodium 138 Potassium 4.2 Chloride 107 Carbon Dioxide 25 Anion Gap 6 BUN 19 Creatinine 1.22 Est Cr Clr Drug Dosing 104.2 Est GFR ( Amer) 79.6 Est GFR (Non-Af Amer) 68.7 BUN/Creatinine Ratio 15.6 Glucose 110 H Estimat Average Glucose Hemoglobin A1c Calcium 9.3 Magnesium Total Bilirubin 0.6 AST 20 ALT 33 Alkaline Phosphatase 105 H Troponin I High Sens 5.1 Total Protein 7.4 Albumin 4.5 Globulin 2.9 Albumin/Globulin Ratio 1.6 Triglycerides Cholesterol LDL Cholesterol, Calc VLDL Cholesterol, Calc HDL Cholesterol Cholesterol/HDL Ratio Lipase 16 SARS-CoV-2, RNA, NAAT NEGATIVE 11/20/21 11/21/21 11/21/21 22:29 05:25 05:25 WBC 6.48 RBC 4.58 L Hgb 15.0 Hct 42.8 MCV 93.4 MCH 32.8 MCHC 35.0 RDW Std Deviation 42.3 RDW Coeff of Manish 12.4 Plt Count 170 MPV 10.9 Immature Gran % (Auto) 0.3 Neut % (Auto) 54.2 Lymph % (Auto) 28.7 [place] % (Auto) 10.0 Eos % (Auto) 6.3 Baso % (Auto) 0.5 Neut # (Auto) 3.51 Lymph # (Auto) 1.86 [place] # (Auto) 0.65 Eos # (Auto) 0.41 Baso # (Auto) 0.03 Immature Gran # (Auto) 0.02 Sodium 139 Potassium 3.8 Chloride 107 Carbon Dioxide 27 Anion Gap 5 BUN 20 Creatinine 1.26 Est Cr Clr Drug Dosing 100.9 Est GFR ( Amer) 76.6 Est GFR (Non-Af Amer) 66.1 BUN/Creatinine Ratio 15.9 Glucose 101 H Estimat Average Glucose Hemoglobin A1c Calcium 8.6 Magnesium 2.0 2.1 Total Bilirubin AST ALT Alkaline Phosphatase Troponin I High Sens 5.3 5.0 Total Protein Albumin Globulin Albumin/Globulin Ratio Triglycerides 90 Cholesterol 156 LDL Cholesterol, Calc 108 VLDL Cholesterol, Calc 18 HDL Cholesterol 30 Cholesterol/HDL Ratio 5.2 H Lipase SARS-CoV-2, RNA, NAAT 11/21/21 05:25 WBC RBC Hgb Hct MCV MCH MCHC RDW Std Deviation RDW Coeff of Manish Plt Count MPV Immature Gran % (Auto) Neut % (Auto) Lymph % (Auto) [place] % (Auto) Eos % (Auto) Baso % (Auto) Neut # (Auto) Lymph # (Auto) [place] # (Auto) Eos # (Auto) Baso # (Auto) Immature Gran # (Auto) Sodium Potassium Chloride Carbon Dioxide Anion Gap BUN Creatinine Est Cr Clr Drug Dosing Est GFR ( Amer) Est GFR (Non-Af Amer) BUN/Creatinine Ratio Glucose Estimat Average Glucose 114 Hemoglobin A1c 5.6 Calcium Magnesium Total Bilirubin AST ALT Alkaline Phosphatase Troponin I High Sens Total Protein Albumin Globulin Albumin/Globulin Ratio Triglycerides Cholesterol LDL Cholesterol, Calc VLDL Cholesterol, Calc HDL Cholesterol Cholesterol/HDL Ratio Lipase SARS-CoV-2, RNA, NAAT Diagnostic Findings Echo 11/21/2021: Normal LV systolic function and wall motion. Moderate LVH. No significant valvular abnormalities. ECG personally reviewed 11/20/2021: Sinus rhythm first-degree AV block. 77 beats per minute. Otherwise normal ECG. Chest x-ray report 11/20/2021: No acute cardiopulmonary process per Radiology. Medications Administered Current Inpatient Medications Acetaminophen (Acetaminophen 325 Mg Tab) 650 mg PO Q6H PRN PRN Reason: Pain or Fever Stop: 12/20/21 23:32 Amlodipine Besylate (Amlodipine Besylate 5 Mg Tab) 5 mg PO QAM [facility] Stop: 12/21/21 08:59 Last Admin: 11/21/21 09:32 Dose: 5 mg Enoxaparin Sodium (Enoxaparin Inj 40 Mg/0.4 Ml Syr) 40 mg SQ PM [facility] Stop: 12/20/21 23:32 Last Admin: 11/21/21 00:10 Dose: 40 mg Losartan Potassium (Losartan Potassium 25 Mg Tab) 25 mg PO QAM [facility] Stop: 12/21/21 08:59 Last Admin: 11/21/21 09:32 Dose: 25 mg Nitroglycerin (Nitroglycerin Sl 0.4 Mg/Tab Tab) 0.4 mg SL UD PRN PRN Reason: Chest Pain Stop: 12/20/21 23:32 PG Care Time/CCT Total # of Minutes Spent Total Time Spent with Patient: Total time spent is greater than 50% in coordination of care (as documented) at patient's floor/unit and/or counseling patient: Coding Level of Care Code 04287 Office/OBS Consult Lvl 4 Diagnoses Hypertensive emergency I16.1 Chest pain R07.9 Dilated aortic root I77.810
--- NOTE | 2021-11-21 16:28 | Discharge Summary ---
Date of Service November 21, 2021 Admission HPI Per Admitting Provider Stefan Rowland is a 50yo male with PMHx significant for HTN (not on medications) who presented to [facility] ED on 11/20 for chest pain. 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 He sat down and rested for ~10 minutes which led to resolution of symptoms. Then he started driving back from [place] (where he was working), and ~[address] he developed moderate-intensity radiating chest pressure to left arm which lasted for ~1 hour and then had remained as intermittent chest pressure since then, which brought him to the ED. Patient denies previous chest pain/angina, denies previous OR or heart disease. Does have h/o HTN - took Lisinopril 10mg PO daily, lost weight and was able to wean off of his medication several years ago. Of note he has not checked his BP recently. Patient has a family history of OR (grandmother, in her late 50s) and has a 20 pack year smoking history - quit ~1 month ago. In the ED the patient was hypertensive to 213/141. hsTroponin was 5.1, and EKG showed NSR with 1st degree AV block although was without ST/T abnormalities. CBC/CMP/lipase all unremarkable. CXR unremarkable. Patient received Aspirin 324mg, SL Nitro x1, and Nitropaste x1, with complete resolution of chest pain. Admission Exam Per Admitting Provider General: A&Ox3. NAD. Cooperative. HEENT: Atraumatic, normocephalic. Pulm: CTAB A&P. -wheezes, -rales, -rhonchi. Symmetrical chest rise. No increase work of breathing. No respiratory distress. Cardiac: RRR, -mrg. Radial pulses intact and symmetrical Chest: no tenderness to palpation of chest. Abdominal: soft, non-tender, non-distended, BS x 4 Skin: warm, dry, no rash Principal Diagnosis Hypertensive emergency Chest pain Discharge Exam General: A&Ox3. NAD. Cooperative. HEENT: Atraumatic, normocephalic. Pulm: CTAB A&P. -wheezes, -rales, -rhonchi. Symmetrical chest rise. No increase work of breathing. No respiratory distress. Cardiac: RRR, -mrg. Radial pulses intact and symmetrical Chest: no tenderness to palpation of chest. Abdominal: soft, non-tender, non-distended Skin: warm, dry, no rash Discharge Data Allergies Allergy/AdvReac Type Severity Reaction Status Date / Time No Known Allergies Allergy Unverified 11/20/21 21:29 Consultations 11/20/21 21:21 ED Decision to Admit Stat 11/20/21 23:33 Consult Cardiology Routine Ordered Studies 11/21/21 11/21/21 11/21/21 Range/Units 05:25 05:25 05:25 WBC 6.48 (4.8-10.8) K/ul RBC 4.58 L (4.63-6.08) M/uL Hgb 15.0 (14.0-18.0) g/dl Hct 42.8 (40.1-51.0) % MCV 93.4 (80.0-100.0) fL MCH 32.8 (25.0-34.0) pg MCHC 35.0 (32.0-36.0) g/dL RDW Std Deviation 42.3 (36.4-46.3) fL RDW Coeff of Manish 12.4 (11.5-14.5) % Plt Count 170 (130-400) K/uL MPV 10.9 (9.4-12.4) fL Immature Gran % (Auto) 0.3 % Neut % (Auto) 54.2 % Lymph % (Auto) 28.7 % [place] % (Auto) 10.0 % Eos % (Auto) 6.3 % Baso % (Auto) 0.5 % Neut # (Auto) 3.51 (1.4-6.5) K/uL Lymph # (Auto) 1.86 (1.2-3.4) K/uL [place] # (Auto) 0.65 (0.24-0.82) K/uL Eos # (Auto) 0.41 (0-0.50) K/uL Baso # (Auto) 0.03 (0-0.2) K/uL Immature Gran # (Auto) 0.02 (0.00-0.02) K/uL Sodium 139 (136-145) mmol/L Potassium 3.8 (3.5-5.1) mmol/L Chloride 107 (98-107) mmol/L Carbon Dioxide 27 (21-32) mmol/L Anion Gap 5 (3-11) BUN 20 (6-23) mg/dl Creatinine 1.26 (0.6-1.4) mg/dl Est Cr Clr Drug Dosing 100.9 ml/min Est GFR ( Amer) 76.6 ml/min Est GFR (Non-Af Amer) 66.1 ml/min BUN/Creatinine Ratio 15.9 (10-20) Glucose 101 H (70-99(Fasting)) mg/dl Estimat Average Glucose 114 mg/dl Hemoglobin A1c 5.6 (4.5-5.6) % Calcium 8.6 (8.5-10.1) mg/dl Magnesium 2.1 (1.7-2.4) mg/dl Total Bilirubin (0.2-1.0) mg/dl AST (13-39) U/L ALT (7-52) U/L Alkaline Phosphatase (34-104) U/L Troponin I High Sens 5.0 (0-20) pg/ml Total Protein (6.0-8.3) gm/dl Albumin (3.4-5.0) gm/dl Globulin (2.5-4.0) gm/dl Albumin/Globulin Ratio (0.9-2) Triglycerides 90 (0-150) mg/dl Cholesterol 156 (0-200) mg/dl LDL Cholesterol, Calc 108 mg/dl VLDL Cholesterol, Calc 18 (0-30) mg/dl HDL Cholesterol 30 mg/dl Cholesterol/HDL Ratio 5.2 H (0-5) Lipase (11-82) U/L SARS-CoV-2, RNA, NAAT (NEGATIVE) 11/20/21 11/20/21 11/20/21 Range/Units 22:29 21:47 19:35 WBC (4.8-10.8) K/ul RBC (4.63-6.08) M/uL Hgb (14.0-18.0) g/dl Hct (40.1-51.0) % MCV (80.0-100.0) fL MCH (25.0-34.0) pg MCHC (32.0-36.0) g/dL RDW Std Deviation (36.4-46.3) fL RDW Coeff of Manish (11.5-14.5) % Plt Count (130-400) K/uL MPV (9.4-12.4) fL Immature Gran % (Auto) % Neut % (Auto) % Lymph % (Auto) % [place] % (Auto) % Eos % (Auto) % Baso % (Auto) % Neut # (Auto) (1.4-6.5) K/uL Lymph # (Auto) (1.2-3.4) K/uL [place] # (Auto) (0.24-0.82) K/uL Eos # (Auto) (0-0.50) K/uL Baso # (Auto) (0-0.2) K/uL Immature Gran # (Auto) (0.00-0.02) K/uL Sodium 138 (136-145) mmol/L Potassium 4.2 (3.5-5.1) mmol/L Chloride 107 (98-107) mmol/L Carbon Dioxide 25 (21-32) mmol/L Anion Gap 6 (3-11) BUN 19 (6-23) mg/dl Creatinine 1.22 (0.6-1.4) mg/dl Est Cr Clr Drug Dosing 104.2 ml/min Est GFR ( Amer) 79.6 ml/min Est GFR (Non-Af Amer) 68.7 ml/min BUN/Creatinine Ratio 15.6 (10-20) Glucose 110 H (70-99(Fasting)) mg/dl Estimat Average Glucose mg/dl Hemoglobin A1c (4.5-5.6) % Calcium 9.3 (8.5-10.1) mg/dl Magnesium 2.0 (1.7-2.4) mg/dl Total Bilirubin 0.6 (0.2-1.0) mg/dl AST 20 (13-39) U/L ALT 33 (7-52) U/L Alkaline Phosphatase 105 H (34-104) U/L Troponin I High Sens 5.3 5.1 (0-20) pg/ml Total Protein 7.4 (6.0-8.3) gm/dl Albumin 4.5 (3.4-5.0) gm/dl Globulin 2.9 (2.5-4.0) gm/dl Albumin/Globulin Ratio 1.6 (0.9-2) Triglycerides (0-150) mg/dl Cholesterol (0-200) mg/dl LDL Cholesterol, Calc mg/dl VLDL Cholesterol, Calc (0-30) mg/dl HDL Cholesterol mg/dl Cholesterol/HDL Ratio (0-5) Lipase 16 (11-82) U/L SARS-CoV-2, RNA, NAAT NEGATIVE (NEGATIVE) 11/20/21 Range/Units 19:35 WBC 9.61 (4.8-10.8) K/ul RBC 4.98 (4.63-6.08) M/uL Hgb 16.1 (14.0-18.0) g/dl Hct 45.9 (40.1-51.0) % MCV 92.2 (80.0-100.0) fL MCH 32.3 (25.0-34.0) pg MCHC 35.1 (32.0-36.0) g/dL RDW Std Deviation 41.0 (36.4-46.3) fL RDW Coeff of Manish 12.2 (11.5-14.5) % Plt Count 191 (130-400) K/uL MPV 10.6 (9.4-12.4) fL Immature Gran % (Auto) 0.2 % Neut % (Auto) 71.5 % Lymph % (Auto) 18.8 % [place] % (Auto) 6.1 % Eos % (Auto) 2.9 % Baso % (Auto) 0.5 % Neut # (Auto) 6.86 H (1.4-6.5) K/uL Lymph # (Auto) 1.81 (1.2-3.4) K/uL [place] # (Auto) 0.59 (0.24-0.82) K/uL Eos # (Auto) 0.28 (0-0.50) K/uL Baso # (Auto) 0.05 (0-0.2) K/uL Immature Gran # (Auto) 0.02 (0.00-0.02) K/uL Sodium (136-145) mmol/L Potassium (3.5-5.1) mmol/L Chloride (98-107) mmol/L Carbon Dioxide (21-32) mmol/L Anion Gap (3-11) BUN (6-23) mg/dl Creatinine (0.6-1.4) mg/dl Est Cr Clr Drug Dosing ml/min Est GFR ( Amer) ml/min Est GFR (Non-Af Amer) ml/min BUN/Creatinine Ratio (10-20) Glucose (70-99(Fasting)) mg/dl Estimat Average Glucose mg/dl Hemoglobin A1c (4.5-5.6) % Calcium (8.5-10.1) mg/dl Magnesium (1.7-2.4) mg/dl Total Bilirubin (0.2-1.0) mg/dl AST (13-39) U/L ALT (7-52) U/L Alkaline Phosphatase (34-104) U/L Troponin I High Sens (0-20) pg/ml Total Protein (6.0-8.3) gm/dl Albumin (3.4-5.0) gm/dl Globulin (2.5-4.0) gm/dl Albumin/Globulin Ratio (0.9-2) Triglycerides (0-150) mg/dl Cholesterol (0-200) mg/dl LDL Cholesterol, Calc mg/dl VLDL Cholesterol, Calc (0-30) mg/dl HDL Cholesterol mg/dl Cholesterol/HDL Ratio (0-5) Lipase (11-82) U/L SARS-CoV-2, RNA, NAAT (NEGATIVE) ECHO 11/21/21 Normal left ventricular size and systolic function. EF 55-60%. No regional wall motion abnormalities. Moderate concentric left ventricular hypertrophy. No significant valvular abnormalities. Mildly dilated aortic root 4.6 cm. Normal estimated right ventricular systolic pressure, assuming normal right atrial pressure. No prior study available for comparison. Chest X-Ray 11/20/21 19:27 SINGLE VIEW CHEST CLINICAL HISTORY: Atypical chest pain FINDINGS: 2 AP, portable, upright chest radiographs are obtained. No prior studies are available for comparison at the time of dictation. The examination is degraded by portable technique and apical lordotic positioning. The heart is top normal for projection noting atherosclerotic calcification of the thoracic aorta. The pulmonary vasculature is noncongested. There is bibasilar s carring/atelectasis. No airspace consolidation or large pleural effusion is identified. No pneumothorax is seen. The bony thorax is grossly intact. IMPRESSION: No acute cardiopulmonary abnormality. Hospital Course (1) Hypertensive emergency: (2) Chest pain: (3) HTN (hypertension): (4) First degree atrioventricular block: Plan Mr. Rowland is a 50 y/o male with PMHx significant for HTN (not on medications) who presented to [facility] ED on 11/20 for chest pain. 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 He sat down and rested for ~10 minutes which led to resolution of symptoms. Then he started driving back from [place] (where he was working), and ~[address] he developed moderate-intensity radiating chest pressure to left arm which lasted for ~1 hour and then had remained as intermittent chest pressure since then, which brought him to the ED. Patient denies previous chest pain/angina, denies previous OR or heart disease. Does have h/o HTN - took Lisinopril 10mg PO daily, lost weight and was able to wean off of his medication several years ago. Of note he has not checked his BP recently. Patient has a family history of OR (grandmother, in her late 50s) and has a 20 pack year smoking history - quit ~1 month ago. In the ED the patient was hypertensive to 213/141. hsTroponin was 5.1, and EKG showed NSR with 1st degree AV block although was without ST/T abnormalities. CBC/CMP/lipase all unremarkable. CXR unremarkable. Patient received Aspirin 324mg, SL Nitro x1, and Nitropaste x1, with complete resolution of chest pain #Hypertensive Emergency BP up to 213/141, briefly improved after Nitropaste but then back up to 202/142. Suspect patient has had uncontrolled hypertension that may have caused chest pain/angina. BP down to 168/113 after Hydralazine 10mg IV. Discharge with losartan 25 mg PO QAM, amlodipine 5 mg PO QAM, and carvedilol 3.125 mg BID. Echo - mildly dilated aortic root 4.6 cm, and mild left ventricular hypertrophy, EF 55-60%. #CP - resolved Symptoms suggestive of typical angina and resolved after Nitropaste. However EKG without ST/T abnormalities, and hsTroponin 5.1 --> 5.3 after ~3 hours. Cardiology was consulted and will follow outpatient. Lipid profile - TRG 90, Chol 156, LDL 108, VLDL 18, HDL 30. HbA1c - 5.6. #HTN Chronic, likely uncontrolled as stated above. Plan as above. #First degree AV block Per EKG done today. Monitor HR on beta-andrés. FEN/GI: Heart healthy, low sodium < 2000 mg DVT Prophylaxis: Lovenox Code Status: full code Disposition: home Total Time Total Time Spent Total Time Spent (In Minutes): >30 Discharge Plan Discharge Items Patient Disposition: Home - Self-Care Reason For Visit: HYPERTENSIVE EMERGENCY, CHEST PAIN Discharge Diagnosis: Hypertensive Emergency, Chest Pain Activity: Per Instructions section Non-emergency contact: Primary Care Provider and [facility] Call non-emergency contact if: you have any medication questions, your symptoms worsen and your wound has increased drainage Follow-up/Referrals: Alfonso Nixon MD [Physician] - 12/05/21 8:45 am Jessica Summers CRNP [Primary Care Provider] - (hospital discharge follow up within 1 week) Diet: Carb Consistent or DM2, Heart Healthy and Low Sodium (2gm) Addtl Attending Provider Instructions: You were seen here for chest pain. You had two episodes of chest tightness - one lasting an hour and then the second lasting 45 minutes. After nitroglycerin your symptoms resolved. Your workup did not show any signs of a heart attack. Follow up with cardiology. You were found to have significant hypertension 213/141. We started losartan, amlodipine, and carvedilol. Recommend a Mediterranean diet with <2000 mg of sodium daily. Follow up at the clinic tomorrow for a BP check. Follow up AM 11/28 at clinic as well. Your heart rate tends to be on the lower side. Carvedilol (a beta andrés) can further your heart rate. Watch for signs of slow heart rate - dizziness, fatigue "sign out" -- take this with you so that if you were (hopefully not) to end up needing care while on the road, this can serve as a "signout" to get the ball rolling (i would also suggest being on the [facility] portal- then you can really have access to more or less the whole chart, just in a different appearance than we see on the clinical side of the electronic record) 50 year old male presented after 2 episodes of chest pain - first lasting an hour, second lasting about 45mins (both nonstop) on his way from work (ie symptoms at rest) - did have some preceding nausea/lightheaded when working, but no chest tightness with exertion. BP markedly elevated (peak 202/142), OR ruled out: EKG NSR without acute ischemic changes (for reference does have age indeterminate Q in III, small downward deflection "almost Q" in aVF, otherwise normal, although not present on f/u EKG suggesting some may have been lead placement). echo w EF 55-60%, no RWMA, moderate concentric LVH, mildly dilated aortic root at 4.6cm (cardiology also noted that his vessels are a bit large natively, making the actual degree of dilation likely functionally less), no valvular disease. with symptoms lasting for so long unremitting and no tro p/echo findings working dx was angina largely from excessive afterload, but low risk for any unstable coronary disease. initiated on losartan 25, amlodipine 5, carvedilol 3.125 bid. asked to follow BP ambulatory ~BID/TID, discussed return for eval emilio if symptoms - and if BP running markedly uncontrolled (~180/110 or higher range) without symptoms to first rest, then call office for instructions (such as increasing losartan or amlodipine), then if ongoing persistent highs - seek more urgent evaluation. therefore, if he is presenting to you in this context, it would likely be due to CP (which from what we have seen would most likely be HTN mediated high afterload) or due to "the number" as far as just persistently elevated numbers requiring evaluation and/or guidance not really able to be provided over the phone. 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 services assistant on inpatient service Pending Studies at Discharge: No Stand-Alone Forms: My [facility], Smoking Cessation Medications and DC Order Prescriptions: New amlodipine [Norvasc] 5 mg Tablet 5 mg PO QAM Qty: 30 0RF losartan 25 mg Tablet 25 mg PO QAM Qty: 30 0RF carvedilol 3.125 mg tablet 3.125 mg PO BID Qty: 60 0RF Rx Instructions: must administer with a meal/food Discharge Orders: Discharge Order (Routine); Ordered 11/21/21 Ordered By: Derek Prince Admission Data Admit Date/Time: 11/20/21 22:43 Attending Provider: Derek Prince Admit Provider: Karlos Castillo Primary Care Provider: Jessica Summers Other Providers: Karlos Castillo ; Alfonso Nixon Other Interventions: Discharge Summary Assessment (RN) Last Done: 11/21/21 16:33 Supervising Physician Co-Signing Physician Notes I personally examined the patient and verified all cochran points of history and exam, discussed case, and agree with decision making with Dr Gómez. Feeling better. No recurrence of pain. Symptoms lasted for about an hour unremitting, and then later for about 45 minutes unremitting. Feels good now. Asks a lot of very good questionsanswered all to the best my ability and his satisfaction. Case discussed with cardiologyinput greatly appreciated. Vitals noted, in general he is awake and alert pleasant no distress. HEENT normocephalic atraumatic mucous membranes moist. Breathing unlabored no accessory muscle use good effort. Skin shows no rashes no pallor or icterus. Neuro without focal deficits. Chest painappears to be afterload related to hypertensive crisisfortunately no myocardial ischemia or damageand given how long his symptoms lasted with no elevation of troponin and no wall motion abnormalities, picture is very reassuring that this was a purely hypertensive problem. See below Uncontrolled hypertensionwith the "fall out" of LVH and a dilated aortic rootapplauded smoke cessation, discussed lifestyle change. For now amlodipine, losartan, and carvedilol. Outpatient basic metabolic panel next week. Close outpatient follow-up. He is traveling at the end of next weekwe discussed close follow-up over the coming week and then close follow of his blood pressure when he is traveling so as to keep him as safe as possible. Resident Activity Tracking Resident Involvement: Resident Care Provided Care Provided: Adult Hospital Medicine
--- NOTE | 2021-11-21 18:47 | Billing Data ---
Date of Service November 21, 2021 Coding Level of Care Code 34022 OBS Care - Discharge
--- NOTE | 2021-11-21 21:37 | Billing Data ---
Date of Service November 21, 2021 Coding Level of Care Code INT OBSERVATION CARE 70M LVL 3
--- NOTE | 2021-11-21 21:50 | Electrocardiogram Report ---
Test Reason : Blood Pressure : / mmHG Vent. Rate : 077 BPM Atrial Rate : 077 BPM P-R Int : 220 ms QRS Dur : 082 ms QT Int : 380 ms P-R-T Axes : 019 018 037 degrees QTc Int : 430 ms Sinus rhythm with 1st degree A-V block Possible Inferior infarct No previous ECGs available Confirmed by Alfonso Nixon ([id number]) on 11/21/2021 9:50:39 PM Referred By: REFERRED SELF Confirmed By:Alfonso Nixon
--- NOTE | 2021-11-22 05:59 | Electrocardiogram Report ---
Test Reason : Blood Pressure : / mmHG Vent. Rate : 065 BPM Atrial Rate : 065 BPM P-R Int : 238 ms QRS Dur : 080 ms QT Int : 406 ms P-R-T Axes : 045 060 067 degrees QTc Int : 422 ms Poor data quality, interpretation may be adversely affected Sinus rhythm with 1st degree A-V block Anterior infarct , age undetermined Abnormal ECG When compared with ECG of 20-NOV-2021 19:28, Anterior infarct is now Present Nonspecific T wave abnormality now evident in Anterior leads Confirmed by Alfonso Nixon ([id number] on 11/22/2021 5:58:41 AM Referred By: REFERRED SELF Confirmed By:Alfonso Nixon
== END 2021-11-21 17:31 | disposition home or self-care (01) ==
LOC: ED 19:21 → EDINP 19:21 → SUATTDRO 22:43 → 2N 23:34